=== PATIENT | female | born 1965 | race Caucasian/White ===

== ENCOUNTER → 2018-02-26 10:21 | Outpatient (CLI) | payer MEDICARE ==
[2015-11-24 14:11] VITALS: BMI 36.7
[~2018-02-26 10:21] MED LIST: AMBIEN10 MG PO; ANUSOL-HC25 MG RC; CARAFATE1 G/10 ML PO; CELEXA20 MG PO; CELEXA40 MG PO; DEPAKENE250 MG PO; LEVSIN/ANASP0.125 MG PO; LYRICA75 MG PO; MARTEN-TAB 325/1 TAB PO; MAXALT MLT10 MG/TAB PO; MEDROL DOSE PACK4 MG PO; MOBIC7.5 MG PO; NORCO 10/325 TA1 TA1; NORCO 10/325 TA1 TA1 PO; PERCOCET 10/3251 TA1 PO; PROTONIX40 MG PO; VALIUM5 MG PO; VITAMIN D31000 UNIT PO; ZANAFLEX4 MG; ZANAFLEX4 MG PO; [UNRECOGNIZED DRUG - OTHER]; [UNRECOGNIZED DRUG - OTHER] PO
== END | disposition home or self-care (01) ==
LOC: D.MRI 10:21 → D.MAMMO 10:30
DX: M54.16 Radiculopathy, lumbar region (principal); Z00.00 Encounter for general adult medical examination without abnormal findings

== ENCOUNTER → 2018-03-18 20:43 | Outpatient (CLI) | payer MEDICARE ==
[2015-11-24 14:11] VITALS: BMI 36.7
== END | disposition home or self-care (01) ==
LOC: D.MAMMO 14:30
DX: R92.8 Other abnormal and inconclusive findings on diagnostic imaging of breast (principal)

== ENCOUNTER → 2018-04-17 16:53 | Outpatient (CLI) | payer MEDICARE ==
[2015-11-24 14:11] VITALS: BMI 36.7
[~2018-04-17 16:53] MED LIST changes: +ADIPEX-P37.5 MG PO; +HYDROCODONE-APA1 TAB PO; +IMITREX50 MG PO; +KEFLEX500 MG PO; +VIBRAMYCIN50 MG PO
== END | disposition home or self-care (01) ==
LOC: D.MAMMO 08:00
DX: R92.8 Other abnormal and inconclusive findings on diagnostic imaging of breast (principal)

== ENCOUNTER 2018-05-08 07:47 | Day surgery (SDC) | payer MEDICARE ==
[~2018-05-08] VITALS: Ht 170.2 cm; Wt 91.6 kg
--- NOTE | ~2018-05-08 | OP ---
PATIENT NAME: TANA GREENWOOD MEDICAL RECORD: [id number] :65 LOCATION:D.OPS ADMISSION DATE: SURGEON: DARIUS MANCIA MD DATE OF OPERATION: 05/08/2018 PREOPERATIVE DIAGNOSES: 1. Ductal carcinoma in situ of the left breast. 2. Arthritis. 3. Fibromyalgia. 4. Osteoporosis. POSTOPERATIVE DIAGNOSES: 1. Ductal carcinoma in situ of the left breast. 2. Arthritis. 3. Fibromyalgia. 4. Osteoporosis. PROCEDURE: Needle localization, left breast lumpectomy. SURGEON: Darius Mancia MD REPORT OF PROCEDURE: Preoperatively, the patient underwent a needle localization. After review of the films, the patient was taken to the operating room and her left breast was prepped and draped in sterile fashion. A semicircular incision was made on the superior aspect of the nipple areolar complex. Electrocautery was used to dissect through the subcutaneous tissues to the wire which was projecting out of the superior aspect of the breast at the 12 o'clock position. We followed this wire down and took out a core of tissue on the central portion of the breast underneath the nipple-areolar complex. Once the tissue was removed, it was marked appropriately and sent off to mammography, where it was noted to have a complete wire present within it and the calcifications were seen within the specimen. The subcutaneous tissues were irrigated out and any bleeding was treated with electrocautery. The subcutaneous tissues were then reapproximated with interrupted 3-0 Vicryl and the skin was closed with running subcutaneous 5-0 Monocryl. COMPLICATIONS: None. CONDITION: Stable. ANESTHESIA: General endotracheal and local. BLOOD LOSS: 30 mL. TRANSINT:[id number] Voice Confirmation ID: [id number] DOCUMENT ID: [id number] DARIUS MANCIA MD at 1418 CC: CANDY DOWNEY DO [id number] DICTATION DATE: 05/08/18 1342 COAT FINISHER: 05/08/18 1452 [facility] 05/08/[address] [address]
[~2018-05-08 07:47] MED LIST changes: -HYDROCODONE-APA1 TAB PO; -KEFLEX500 MG PO; -VIBRAMYCIN50 MG PO
[2018-05-08 08:12] LABS: BASOPHILS 0.4 % (0-2); EOSINOPHILS 2.1 % (0-7); HEMATOCRIT 39.3 % (36.0-48.0); IMMATURE GRANULOCYTES 0.1 % (0-5); LYMPHOCYTES 25.4 % (15-50); MCH 30.1 pg (26.0-34.0); MCHC 33.1 g/dL (31.0-37.0); MEAN PLATELET VOLUME 11.7 fL (7.4-10.4); MONOCYTES 7.6 % (2-11); NEUTROPHILS 64.4 % (40-80); PLATELET COUNT 190 10x3/uL (130-400); RBC 4.32 10x6/uL (4.00-5.40); RDW 13.5 % (11.5-14.5); WBC 7.2 10x3/uL (4.8-10.8)
[2018-05-08 08:38] LABS: ANION GAP 11.8 mmol/L (8-16); CALCIUM 10.1 mg/dL (8.5-10.1); CARBON DIOXIDE 29.5 mmol/L (21.0-32.0); CREATININE - SERUM 1.4 mg/dL (0.6-1.3); POTASSIUM - SERUM 4.3 mmol/L (3.5-5.1)
[2018-05-08 08:52] VITALS: Ht 170.2 cm; Wt 91.6 kg
[2018-05-08] MEDS ORDERED: HYDROCODONE-APA1 TAB PO (13:39)
== END 2018-05-08 16:25 | disposition home or self-care (01) ==
LOC: D.OPS 07:47 → D.PAN 10:00 → D.MAMMO 10:00 → D.OPS 16:25
PROVIDERS: Surgery
DX: D05.12 Intraductal carcinoma in situ of left breast (principal); M19.90 Unspecified osteoarthritis, unspecified site; M79.7 Fibromyalgia; M81.0 Age-related osteoporosis without current pathological fracture; Z01.812 Encounter for preprocedural laboratory examination

== ENCOUNTER → 2018-06-08 14:04 | Outpatient (CLI) | payer MEDICARE ==
[2018-05-08 08:52] VITALS: BMI 31.7
[~2018-06-08 14:04] MED LIST changes: +HYDROCODONE-APA1 TAB PO; +KEFLEX500 MG PO; +VIBRAMYCIN50 MG PO
== END | disposition home or self-care (01) ==
LOC: D.US 13:00
DX: N64.4 Mastodynia (principal)

== ENCOUNTER 2018-06-09 05:55 | Day surgery (SDC) | payer MEDICARE ==
[2018-06-08 16:32] LABS: HEMATOCRIT 37.2 % (36.0-48.0); HEMOGLOBIN 12.4 g/dL (12-16); MCHC 33.3 g/dL (31.0-37.0); MCV 90.1 fL (80.0-100.0); MEAN PLATELET VOLUME 11.5 fL (7.4-10.4); RBC 4.13 10x6/uL (4.00-5.40); RDW 13.2 % (11.5-14.5); WBC 9.2 10x3/uL (4.8-10.8)
[2018-06-08 17:29] LABS: HCG SERUM NEGATIVE (NEGATIVE)
[~2018-06-09] VITALS: Ht 170.2 cm; Wt 91.6 kg
--- NOTE | ~2018-06-09 | OP ---
PATIENT NAME: TANA GREENWOOD MEDICAL RECORD: [id number] :65 LOCATION:D.OPS ADMISSION DATE: SURGEON: DARIUS MANCIA MD DATE OF OPERATION: 06/09/2018 PREOPERATIVE DIAGNOSES: 1. Postoperative left breast infection with abscess. 2. Fibromyalgia. POSTOPERATIVE DIAGNOSES: 1. Postoperative left breast infection with abscess. 2. Fibromyalgia. PROCEDURE: I&D of the left breast with drain placement. SURGEON: Darius Mancia MD REPORT OF PROCEDURE: The patient's left breast was prepped and draped in sterile fashion. An opening was made at the most superior aspect of the nipple areolar complex and immediately there was return of a large amount of purulent material. In total, about 500 mL of purulent material was removed. This was not foul-smelling. Once we removed as much as we could, then a 15 Tang rounded drain was inserted into the subareolar pocket through the left lateral breast. This was sutured into place with a 4-0 nylon. We then irrigated through the drain out the incision using peroxide and saline solution. A large amount of peroxide and saline was used until there was finally a good clear return of fluid through the wound. At this point, the wound incision was reapproximated with interrupted 5-0 Monocryl and closed at the skin level with running subcutaneous 5-0 Monocryl. The drain was then placed to bulb suction. COMPLICATIONS: None. CONDITION: Stable. ANESTHESIA: General endotracheal. BLOOD LOSS: Minimal. TRANSINT:[id number] Voice Confirmation ID: [id number] DOCUMENT ID: [id number] DARIUS MANCIA MD at 0801 CC: [id number] DICTATION DATE: 06/09/18 0857 YOUTH PASTOR: 06/09/18 0948 [facility] 06/09/[address] [address]
[~2018-06-09 05:55] MED LIST changes: -KEFLEX500 MG PO; -VIBRAMYCIN50 MG PO
[2018-06-09] MEDS ORDERED: KEFLEX500 MG PO (06:20)
[2018-06-09 06:21] VITALS: BP 133/73; Ht 170.2 cm; Wt 91.6 kg
[2018-06-09] MEDS ORDERED: HYDROCODONE-APA1 TAB PO (08:51)
[2018-06-09] MEDS ORDERED: VIBRAMYCIN50 MG PO (08:51)
== END 2018-06-09 11:50 | disposition home or self-care (01) ==
LOC: D.OPS 05:55 → D.PAN 08:00 → D.OPS 11:50
PROVIDERS: Anesthesiology
DX: T81.4XXA Infection following a procedure, initial encounter (principal); N61.1 Abscess of the breast and nipple; M79.7 Fibromyalgia; Z01.812 Encounter for preprocedural laboratory examination

== ENCOUNTER 2019-01-25 08:00 | Outpatient (CLI) | payer MEDICARE ==
[2018-06-09 06:21] VITALS: BMI 31.7
[~2019-01-25 08:00] MED LIST changes: +KEFLEX500 MG PO; +VIBRAMYCIN50 MG PO
== END 2019-01-25 08:01 | disposition home or self-care (01) ==
LOC: D.MAMMO 08:00
PROVIDERS: ATTEND Internal Medicine Medical Oncology
DX: D05.12 Intraductal carcinoma in situ of left breast (principal)

== ENCOUNTER 2019-04-22 13:40 | Emergency (ER) | payer MEDICARE ==
[2019-04-22 13:58] VITALS: BMI 30.6
[2019-04-22 16:19] VITALS: BP 123/81
== END 2019-04-22 16:21 | disposition home or self-care (01) ==
LOC: D.ER 13:40
DX: S39.012A Strain of muscle, fascia and tendon of lower back, initial encounter (principal); V43.62XA Car passenger injured in collision with other type car in traffic accident, initial encounter; Y93.89 Activity, other specified; Y92.410 Unspecified street and highway as the place of occurrence of the external cause; S16.1XXA Strain of muscle, fascia and tendon at neck level, initial encounter

== ENCOUNTER → 2019-07-22 12:38 | Outpatient (CLI) | payer MEDICARE | END | disposition home or self-care (01) | LOC: D.US 12:38 | PROVIDERS: ATTEND Surgery | DX: C50.912 Malignant neoplasm of unspecified site of left female breast (principal); R92.8 Other abnormal and inconclusive findings on diagnostic imaging of breast ==

== ENCOUNTER 2020-05-22 08:00 | Outpatient (CLI) | payer OTHER | END 2020-05-22 10:00 | disposition home or self-care (01) | LOC: D.MAMMO 08:00 | PROVIDERS: ATTEND Internal Medicine Medical Oncology | DX: D05.12 Intraductal carcinoma in situ of left breast (principal) ==

== ENCOUNTER → 2021-01-29 16:47 | Outpatient (CLI) | payer OTHER | END | disposition home or self-care (01) | LOC: D.MRI 16:30 | DX: M54.17 Radiculopathy, lumbosacral region (principal); M47.897 Other spondylosis, lumbosacral region ==

== ENCOUNTER → 2021-04-02 09:12 | Outpatient (CLI) | payer OTHER | END | disposition home or self-care (01) | LOC: D.US 09:00 | PROVIDERS: ATTEND Internal Medicine Medical Oncology | DX: D05.12 Intraductal carcinoma in situ of left breast (principal); R60.0 Localized edema ==